=== PATIENT | male | born 1955 | race Caucasian/White ===

== ENCOUNTER 2018-12-07 16:31 | Emergency (ER) | payer MEDICAID ==
[~2018-12-07] VITALS: Ht 180.3 cm; Wt 79.4 kg
--- NOTE | 2018-12-07 16:49 | NUR ---
Patient discharged to home in stable conditon. Written and verbal after care instructions given. Patient verbalizes understanding of instructions.PT WALKS IN STEADY GAIT. ABLE TO SWALLOW SALIVA. BREATHING NORMALLY.
== END 2018-12-07 16:53 | disposition home or self-care (01) ==
LOC: ER 16:31
DX: J30.9 Allergic rhinitis, unspecified (principal); Z88.0 Allergy status to penicillin
CPT/HCPCS: A4663

== ENCOUNTER 2022-04-03 12:34 | Emergency (ER) | payer MEDICARE, OTHER ==
[~2022-04-03] VITALS: Ht 185.4 cm; Wt 73.5 kg
[2022-04-03 13:37] LABS: MEAN CORPUSCULAR HEMOGLOBIN 30.7 uug (23.8-33.4); MEAN CORPUSCULAR VOLUME 90.4 fL (73.0-96.2); PLATELET COUNT (AUTO) 260 K/uL (152-348)
[2022-04-03 15:14] LABS: CARBON DIOXIDE 30 mmol/L (21-32); CREATININE 0.9 mg/dL (0.6-1.3); GLUCOSE 107 mg/dL (74-106); UREA NITROGEN, BLOOD 18 mg/dL (7-18)
[2022-04-03 15:36] LABS: CHLORIDE 102 mmol/L (98-107); POTASSIUM 4.3 mmol/L (3.5-5.1)
--- NOTE | 2022-04-03 16:14 | NUR ---
Patient discharged to home in stable condition. Written and verbal after care instructions given. Patient verbalizes understanding of instructions. Stressed follow up or return to ER for worsening s/s.
[2022-04-03 16:23] VITALS: BP 145/49
== END 2022-04-03 16:24 | disposition home or self-care (01) ==
LOC: ER 12:34
DX: R00.2 Palpitations (principal); R00.0 Tachycardia, unspecified; I10 Essential (primary) hypertension
CPT/HCPCS: 36415; 71045; 84443; 84484; 85025; 93005; A4663

== ENCOUNTER 2023-06-13 22:00 | Emergency (ER) | payer MEDICARE, OTHER ==
[~2023-06-13] VITALS: Ht 185.4 cm; Wt 79.4 kg
[2023-06-13 22:18] VITALS: O2SAT 97
[2023-06-13] MEDS ORDERED: LORAZEPAM 2 MG/1 ML VIAL IV ONE (22:45)
[2023-06-13] MEDS ORDERED: IV NORMAL SALINE 1000 ML BAG IV ONE (22:45)
[2023-06-13] MEDS ORDERED: ONDANSETRON 4 MG/2 ML VIAL IV ONE (22:45)
[2023-06-13 23:01] LABS: BASOPHILS % (AUTO) 0.5 % (0.0-2.0); EOSINOPHILS % (AUTO) 0.3 % (0.0-7.0); HEMATOCRIT 47.5 % (36.7-47.1); HEMOGLOBIN 15.9 g/dL (12.5-16.3); LYMPHOCYTES # (AUTO) 1.4 K/uL (0.8-4.8); LYMPHOCYTES % (AUTO) 18.7 % (20.5-51.5); MEAN CORPUSCULAR HEMOGLOBIN 30.5 uug (23.8-33.4); MEAN CORPUSCULAR HGB CONC 34 g/dL (32.5-36.3); MONOCYTES # (AUTO) 0.5 K/uL (0.1-1.30); MONOCYTES % (AUTO) 7.3 % (0.0-11.0); NEUTROPHILS # (AUTO) 5.4 K/uL (1.8-8.9); NEUTROPHILS % (AUTO) 73.2 % (38.5-71.5); PLATELET COUNT (AUTO) 257 K/uL (152-348); RED BLOOD CELL COUNT(AUTO) 5.22 MIL/uL (4.06-5.63); RED CELL DISTRIBUTION WIDTH 14.1 % (12.1-16.2); WHITE BLOOD COUNT (AUTO) 7.4 K/uL (3.6-10.2)
[2023-06-13 23:08] LABS: DIFFERENTIAL COMMENT 1
[2023-06-13 23:11] LABS: CARBON DIOXIDE 25 mmol/L (21-32); CHLORIDE 103 mmol/L (98-107); CREATININE 0.8 mg/dL (0.6-1.3); GLUCOSE 111 mg/dL (74-106); POTASSIUM 3.8 mmol/L (3.5-5.1); SODIUM SERUM 137 mmol/L (136-145); UREA NITROGEN, BLOOD 20 mg/dL (7-18)
[2023-06-13 23:25] LABS: ALANINE AMINOTRANSFERASE 39 U/L (16-63); ALBUMIN 3.7 g/dL (3.4-5.0); ALKALINE PHOSPHATASE 76 U/L (50-136); ASPARTATE AMINOTRANSFERASE 23 U/L (15-37); BILIRUBIN,DIRECT 0.1 mg/dL (0.0-0.2); BILIRUBIN,TOTAL 0.3 mg/dL (0.2-1.0); NT-PRO BNP 35 pg/mL (0-125); TOTAL PROTEIN, SERUM 7.6 g/dL (6.4-8.2)
[2023-06-14] MEDS ORDERED: ONDANSETRON 4 MG/2 ML VIAL ONE (00:07)
[2023-06-14] MEDS ORDERED: ONDA4TAB11 PO (01:57)
[2023-06-14] MEDS ORDERED: LORA0.5T48 PO (01:57)
== END 2023-06-14 02:46 | disposition home or self-care (01) ==
LOC: ER 22:00
DX: R00.2 Palpitations (principal); F41.9 Anxiety disorder, unspecified; R07.89 Other chest pain; R11.0 Nausea; Z88.0 Allergy status to penicillin
CPT/HCPCS: 99285; 71045; 80076; 80048; 83880; 85025; 85379; 84484 ×2; 36415 ×2; 93005; 96374; 96361; J2405; J7040; A4606; A4663